=== PATIENT | female | born 1975 | race Caucasian/White ===

== ENCOUNTER 2017-07-01 10:00 | Outpatient (CLI) | payer BC ==
[~2017-07-01] VITALS: Ht 162.6 cm; Wt 81.6 kg
[~2017-07-01 10:00] MED LIST: ADVOCARE PO; CHOL200025 PO; DICL75TA2 PO; FEXO1TAB42 PO; FLUT9.9S NSEACH; IBUP-1780 PO; MTF500T PO; MULT1TAB69 PO; PSEU-137 PO; SPIR100T2 PO; SPIR100T37 PO; TAMS0.4C98 PO
[2017-07-02] MEDS ORDERED: HYDR-3875 PO (10:16)
[2017-07-02] MEDS ORDERED: NITR-68 PO (10:16)
== END 2017-07-01 10:19 ==
LOC: PREOP 10:00
PROVIDERS: ATTEND Urology
DX: Z01.818 Encounter for other preprocedural examination (principal); N20.1 Calculus of ureter

== ENCOUNTER 2017-07-02 07:14 | Day surgery (SDC) | payer BC ==
[~2017-07-02] VITALS: Ht 162.6 cm; Wt 81.6 kg
--- NOTE | 2017-07-02 07:19 | Progress Note-Pre Operative ---
Pre-Operative Progress Note H&P Reviewed The H&P was reviewed, patient examined and no changes noted. Date Seen by Provider: Jul 02, 2017 Time Seen by Provider: 07:18 Date H&P Reviewed: Jul 02, 2017 Time H&P Reviewed: 07:18 Pre-Operative Diagnosis: RT URETERAL STONE ELIE GILLIAM MD Jul 02, 2017 7:19 am
[2017-07-02 07:20] VITALS: BP 122/82
--- OUTSIDE RECORDS SUMMARY | 2017-07-02 07:20 | XMS REPORT | Continuity of Care Document ---
Author Author [employer] Organization [facility] Address Unknown Phone Unavailable Care Team Providers Care Hitting Coach Name Role Phone [employer] Unavailable Unavailable Problems Medications Allergies, Adverse Reactions, Alerts Immunizations Results Vital Signs Encounters Procedures Plan of Care Social History Assessment and Plan Family History Value Date Source Advance Directives Order Name Results Value Date Source
--- OUTSIDE RECORDS SUMMARY | 2017-07-02 07:20 | XMS REPORT | Continuity of Care Document ---
Author Author [facility] Organization [facility] Address Unknown Phone Unavailable Allergies Active Description Code Type Severity Reaction Onset Reported/Identified Relationship to Patient Clinical Status Yes tobramycin [id number] Drug Allergy Severe SWELLING AND HI 05/19/2014 Medications Problems Procedures Results Encounters ACCT No. Visit Date/Time Discharge Status Pt. Type Provider Facility Loc./Unit Complaint [id number] 07/01/2017 10:00:00 2016 10:19:00 DIS Outpatient ELIE GILLIAM MD [facility] PREOP RIGHT RENAL STONE [id number] 05/21/2014 07:07:00 2013 12:23:00 DIS Outpatient [id number] 05/19/2014 07:16:00 2013 23:59:59 CLS Outpatient [id number] 07/02/2017 09:15:00 PEN Preadmit ELIE GILLIAM MD [facility] RIGHT RENAL STONE
[2017-07-02] MEDS ORDERED: cefTRIAXone 1 GM/NS 50 ML IVPB IV ONE ×2 (07:45)
[2017-07-02] MEDS ORDERED: LACTATED RINGERS 1,000 ML IV PRN (07:49)
[2017-07-02] MEDS ORDERED: LIDOCAINE PF 2% 5 ML (XYLOCAINE) VIAL ONE (07:51)
[2017-07-02] MEDS ORDERED: ONDANSETRON 4 MG/2 ML (SDV) Z0FRAN ONE (07:51)
[2017-07-02] MEDS ORDERED: proPOfol 200 MG/20 ML (DIPRIVAN) VIAL IV ONE (07:51)
[2017-07-02] MEDS ORDERED: fentaNYL INJECTION 100 MCG/2 ML AMP ONE (07:51)
[2017-07-02] MEDS ORDERED: MIDAZOLAM 2 MG/2 ML (VERSED) VIAL ONE (07:52)
[2017-07-02] MEDS ORDERED: FUROSEMIDE 40 MG/4 ML INJ (LASIX) ONE (07:53)
[2017-07-02] MEDS ORDERED: SEVOFLURANE (ULTANE) 15 ML INHAL SOLN ONE ×2 (07:53→08:59)
[2017-07-02] MEDS ORDERED: KETOROLAC 30 MG/ML VIAL ONE (07:53)
[2017-07-02] MEDS ORDERED: FAMOTIDINE 20MG/2ML IV (PEPCID) IV ONE (08:00)
--- NOTE | 2017-07-02 08:31 | Progress Note-Post Operative ---
Post-Operative Progess Note Surgeon (s)/Portfolio Assistant (s) Surgeon ELIE GILLIAM MD Portfolio Assistant: N/A Pre-Operative Diagnosis RT URETERAL STONE Post-Operative Diagnosis SAME Procedure & Operative Findings Date of Procedure 07/02/17 Procedure Performed/Findings RT ESWL Anesthesia Type GENERAL Estimated Blood Loss Estimated blood loss (mL): N/A Specimens/Packing Specimens Removed N/A Packing: N/A ELIE GILLIAM MD Jul 02, 2017 8:31 am
--- NOTE | 2017-07-02 08:33 | Discharge Inst-Urology ---
Discharge Inst-Urology Discharge Medications New, Converted, or Re-newed RX: RX on Chart Patient Instructions/Follow Up Plan Please make appointment to been seen in office Sunday 07/15, KUB prior to it KUB on way home Post ESWL instructions Increase oral fluids for 48 hours and then as needed. Diet and Activity as tolerated. If questions or concerns contact your physician Or seek help at emergency department. ELIE GILLIAM MD Jul 02, 2017 8:33 am
[2017-07-02] MEDS ORDERED: MEPERIDINE (DEMEROL) INJ 50 MG/ML IVP PRN (09:15)
[2017-07-02] MEDS ORDERED: morphine INJ 10 MG/ML 1ML (SYR OR VIAL) IVP PRN (09:15)
[2017-07-02 09:55] VITALS: BP 136/93
[2017-07-02] MEDS ORDERED: HYDROcodone/APAP 7.5 MG/325 MG (LORTAB, LORCET PLUS) TABLET PO PRN (10:15)
[2017-07-02] MEDS ORDERED: HYDR-3875 PO (10:16)
[2017-07-02] MEDS ORDERED: NITR-68 PO (10:16)
[2017-07-02 10:30] VITALS: BP 122/93
[2017-07-02] MEDS ORDERED: PHENAZOPYRIDINE 100 MG (PYRIDIUM) TABLET PO ONE (10:30)
--- NOTE | 2017-07-02 10:32 | Diagnostic Imaging Report ---
INDICATION: Nephrolithiasis. FINDINGS: The bowel gas pattern is nonspecific. There is a calcification projected between the right L2 and L3 spinous processes, likely within the proximal ureter. There are several other calcifications in the pelvis which are indeterminate; however, these likely reflect phleboliths. The bowel gas pattern is nonspecific. IMPRESSION: Questionable proximal right ureteral stone as described. Clinical correlation is recommended. Dictated by: Dictated on workstation # [id number]
[2017-07-02 10:55] VITALS: BP 113/79
[2017-07-02 11:40] VITALS: BP 113/79
--- NOTE | 2017-07-02 22:40 | OPERATIVE REPORT ---
DATE OF SERVICE: 07/02/2017 PREOPERATIVE DIAGNOSIS: Right proximal ureteral stone. POSTOPERATIVE DIAGNOSIS: Right proximal ureteral stone. OPERATION PERFORMED: Right ESWL. SURGEON: Isak Gilliam MD ANESTHESIA: General. COMPLICATIONS: None. DESCRIPTION OF PROCEDURE: Under satisfactory anesthesia, the patient in supine position on the ESWL table, the right proximal ureteral stone was localized. Shocks were delivered gradually increasing at kV up to 6. Total of 2500 shocks completely fragmented the stone that was hardly visualized. The patient received 40 mg of Lasix and 30 mg of Toradol IV at the end of procedure. She tolerated the procedure and anesthesia well and was sent to recovery room in stable condition. Job ID: [id number] DocumentID: [id number] Dictated Date: 07/02/2017 08:48:37 Home Coordinator Date: 07/02/2017 19:22:37 Dictated By: ISAK GILLIAM MD
== END 2017-07-02 11:40 | disposition home or self-care (01) ==
LOC: SDC 07:14
PROVIDERS: ATTEND Urology
DX: N20.1 Calculus of ureter (principal); K21.9 Gastro-esophageal reflux disease without esophagitis; M19.91 Primary osteoarthritis, unspecified site; Z79.899 Other long term (current) drug therapy
CPT/HCPCS: 74000; 84703; 87081